=== PATIENT | female | born 1995 | race Caucasian/White ===

== ENCOUNTER 2022-01-28 09:45 | Outpatient (CLI) | payer OTHER, SELFPAY ==
[2022-02-02 15:52] LABS: HPV Reflexed? NOT INDICATED
== END 2022-01-28 23:59 | disposition home or self-care (01) ==
LOC: LABSPEC 09:45
PROVIDERS: Visit Provider Obstetrics & Gynecology
DX: Z34.90 Encounter for supervision of normal pregnancy, unspecified, unspecified trimester (principal)
CPT/HCPCS: 87086; 87088; 88175; G0145

== ENCOUNTER → 2022-02-24 | Outpatient (CLI) | payer OTHER, SELFPAY ==
[2022-02-24 15:25] LABS: Absolute Neutrophil Count 6.4 X10^3/uL (2.0-7.7); Basophil# 0.04 X10^3/uL; Basophil% 0.4 % (0-1); Eosinophil# 0.05 X10^3/uL; Eosinophils% 0.6 % (0-5); Hematocrit 33.1 % (37-47); Hemoglobin 11.3 g/dL (12.0-15.0); Mean Corp Hgb Conc 34.1 g/dL (32-36); Mean Corpuscular Hgb 30.6 pg (27.0-32.0); Mean Corpuscular Volume 89.7 fL (81-99); Mean Platelet Vol. 9.1 fl (6.2-12.0); Monocyte# 0.52 X10^3/uL; Monocyte% 5.7 % (0-10); NRBC Flagged by Analyzer 0 % (0-5); Neutrophil # 6.44 X10^3/uL (2.7-7.7); Platelet Count 187 K/mm3 (150-450); RBC Distribution Width CV 12.8 % (11.6-14.6); RBC Distribution Width SD 42.5 fl (35.1-43.9); Red Blood Count 3.69 M/mm3 (4.2-5.4); White Blood Count 9.1 K/mm3 (4.4-11.0)
[2022-02-25 07:57] LABS: Rubella IgG Reactive (Nonreactive)
[2022-02-26 20:20] LABS: V-Zoster IgG (Immunity) < 135 index (Immune >165)
== END | disposition home or self-care (01) ==
LOC: PAVLAB 15:00
PROVIDERS: Referring Provider Obstetrics & Gynecology; Visit Provider Obstetrics & Gynecology
DX: Z34.90 Encounter for supervision of normal pregnancy, unspecified, unspecified trimester (principal); Z78.9 Other specified health status
CPT/HCPCS: 36415; 85025; 86762; 86787; 86850; 86900; 86901

== ENCOUNTER → 2022-03-24 | Outpatient (CLI) | payer SELFPAY, OTHER ==
--- NOTE | 2022-03-24 14:05 | US_ITS ---
STUDY: SECOND AND THIRD TRIMESTER OBSTETRICAL ULTRASOUND REASON FOR EXAM: Female, 26 years old anatomy LMP: 11/10/2021. TECHNIQUE: Transabdominal and Transvaginal TECHNICAL QUALITY: Adequate. PRIOR ULTRASOUND: None. FINDINGS: There is a single intrauterine fetus. The fetus is in a variable presentation. There is demonstrated cardiac activity with a heart rate of 160 bpm. There is a normal amniotic fluid volume. The largest amniotic fluid pocket measures 4.2 cm. The amniotic fluid index (NICOLE) is within normal limits. The placenta is posterior and low lying but not previa in location. There are Grade 0 placental changes. The cervix measures 3.8 cm in length. The bilateral adnexal regions are normal. BIOMETRY: BPD: 4.01 cm: 18 weeks, 1 days HC: 14.99 cm: 18 weeks, 0 days AC: 14.2 cm: 19 weeks, 3 days FL: 2.81 cm: 18 weeks, 4 days CI: 77% FL/BPD: 70% FL/HC: FL/AC: 20% HC/AC: 1.06 age by current US: 18 weeks, 3 days. JEANA by current US: 08/22/2020. Estimated weight: 269 grams, +/- 40 grams, 38 %. Age by LMP: 19 weeks, 1 days. JEANA by LMP: 08/17/2022. IMPRESSION: Single live intrauterine gestation with a mean gestational age of 18 weeks and 3 days. Posterior and low-lying placenta. Follow-up recommended. Electronically Signed: Anibal Matamoros MD at 11:07 EDT , STUDY: FIRST TRIMESTER OBSTETRICAL ULTRASOUND REASON FOR EXAM: Female, 26 years old cervical length measurements. LMP: 11/10/2021 TECHNIQUE: Transvaginal TECHNICAL QUALITY: Adequate. PRIOR ULTRASOUND: None. FINDINGS: Cervical length measures 3.8 cm. US/OB Anatomy Scan IMPRESSION: Cervical length measures 3.8 cm. Electronically Signed: Anibal Matamoros MD at 11:08 EDT ,
== END | disposition home or self-care (01) ==
PROVIDERS: Referring Provider Obstetrics & Gynecology; Visit Provider Obstetrics & Gynecology
DX: O44.42 Low lying placenta NOS or without hemorrhage, second trimester (principal); Z3A.18 18 weeks gestation of pregnancy
CPT/HCPCS: 76805; 76817

== ENCOUNTER → 2022-05-26 | Outpatient (CLI) | payer OTHER, SELFPAY ==
[2022-05-26 13:13] LABS: Absolute Lymphocyte Count 2.29 X10^3/uL (0.83-4.51); Absolute Neutrophil Count 8.4 X10^3/uL (2.0-7.7); Basophil# 0.05 X10^3/uL; Basophil% 0.4 % (0-1); Eosinophil# 0.07 X10^3/uL; Eosinophils% 0.6 % (0-5); Hematocrit 30.9 % (37-47); Hemoglobin 10.5 g/dL (12.0-15.0); Lymphocyte # 2.29 X10^3/ul (0.83-4.51); Lymphocyte % 19.8 % (19-41); Mean Corpuscular Hgb 31.6 pg (27.0-32.0); Mean Corpuscular Volume 93.1 fL (81-99); Mean Platelet Vol. 8.9 fl (6.2-12.0); Monocyte# 0.73 X10^3/uL; Monocyte% 6.3 % (0-10); NRBC Flagged by Analyzer 0 % (0-5); Neutrophil # 8.35 X10^3/uL (2.7-7.7); Neutrophil % 72.4 % (47-70); Platelet Count 195 K/mm3 (150-450); RBC Distribution Width CV 13.2 % (11.6-14.6); Red Blood Count 3.32 M/mm3 (4.2-5.4); White Blood Count 11.6 K/mm3 (4.4-11.0)
[2022-05-26 13:35] LABS: Glucose Challenge Gest 1H 50g 69 mg/dL (70-140)
--- NOTE | 2022-05-26 13:50 | US_ITS ---
STUDY: SECOND AND THIRD TRIMESTER OBSTETRICAL ULTRASOUND - LIMITED REASON FOR EXAM: Female, 26 years old placenta location LMP: 11/10/2021 PRIOR ULTRASOUND: 03/24/2022 TECHNIQUE: Transabdominal and Transvaginal TECHNICAL QUALITY: Adequate. FINDINGS: There is a single intrauterine fetus. The fetus is in a cephalic presentation. There is demonstrated cardiac activity with a heart rate of 140 bpm. There is a normal amniotic fluid volume. The largest amniotic fluid pocket measures 5.7 cm. The amniotic fluid index (NICOLE) is cm. The placenta is posterior and low lying but not previa in location. There are Grade 0 placental changes. The cervix measures 3.2 cm in length. US/OB Limited (No Biometrics) IMPRESSION: Living intrauterine as described above. Posterior low lying placenta. Electronically Signed: Yovany Theodore MD at 17:56 EDT ,
== END | disposition home or self-care (01) ==
LOC: US 13:49
PROVIDERS: Obstetrics & Gynecology; Referring Provider Obstetrics & Gynecology; Visit Provider Obstetrics & Gynecology
DX: O44.42 Low lying placenta NOS or without hemorrhage, second trimester (principal); Z3A.00 Weeks of gestation of pregnancy not specified; Z13.1 Encounter for screening for diabetes mellitus
CPT/HCPCS: 36415; 76815; 82950; 85025

== ENCOUNTER → 2022-06-24 | Outpatient (CLI) | payer SELFPAY, OTHER ==
--- NOTE | 2022-06-24 09:36 | US_ITS ---
STUDY: SECOND AND THIRD TRIMESTER OBSTETRICAL ULTRASOUND - LIMITED REASON FOR EXAM: Female, 26 years old low lying placenta LMP: 11/10/2021. PRIOR ULTRASOUND: Comparison is made with prior study dated 05/26/2022. TECHNIQUE: Transabdominal and Transvaginal TECHNICAL QUALITY: Adequate. FINDINGS: There is a single intrauterine fetus. The fetus is in a cephalic presentation. There is demonstrated cardiac activity with a heart rate of 144 bpm. There is a normal amniotic fluid volume. The largest amniotic fluid pocket measures 5.7 cm x 5 cm. The amniotic fluid index (NICOLE) is 14.22 cm. The placenta is posterior in location and is not low lying. The tip of the placenta is at 3.7 cm from the cervical os. There are Grade 0 placental changes. The cervix measures 4.7 cm in length. BIOMETRY: Age by LMP: 32 weeks, 2 days. JEANA by LMP: 08/17/2022. age by prior US: 31 weeks, 4 days. JEANA by prior US: 08/22/2022. US/OB Limited (No Biometrics) IMPRESSION: Posterior placenta. The tip of the placenta is at 3.7 cm from the cervical os. Electronically Signed: Anibal Matamoros MD at 13:21 EDT ,
== END | disposition home or self-care (01) ==
PROVIDERS: Referring Provider Obstetrics & Gynecology; Visit Provider Obstetrics & Gynecology
DX: O44.42 Low lying placenta NOS or without hemorrhage, second trimester (principal); Z3A.31 31 weeks gestation of pregnancy
CPT/HCPCS: 76815

== ENCOUNTER → 2022-07-22 | Outpatient (CLI) | payer OTHER, SELFPAY | END | disposition home or self-care (01) | LOC: LABSPEC 15:55 | PROVIDERS: Referring Provider Obstetrics & Gynecology; Visit Provider Obstetrics & Gynecology | DX: Z34.02 Encounter for supervision of normal first pregnancy, second trimester (principal) | CPT/HCPCS: 87081 ==

== ENCOUNTER → 2022-07-23 | Outpatient (CLI) | payer SELFPAY, OTHER ==
--- NOTE | 2022-07-23 10:56 | US_ITS ---
STUDY: SECOND AND THIRD TRIMESTER OBSTETRICAL ULTRASOUND - LIMITED REASON FOR EXAM: Female, 26 years old small for gestational age LMP: 11/10/2021. PRIOR ULTRASOUND: Comparison is made with prior study of 06/24/2022. TECHNIQUE: Transabdominal TECHNICAL QUALITY: Adequate. FINDINGS: There is a single intrauterine fetus. The fetus is in a cephalic presentation. There is demonstrated cardiac activity with a heart rate of 140 bpm. There is a normal amniotic fluid volume. The largest amniotic fluid pocket measures 5 cm. The amniotic fluid index (NICOLE) is 15.6 cm. The placenta is posterior in location and is not low lying. There are Grade 1 placental changes. The cervix was not measured. BIOMETRY: BPD: 8.43 cm: 34 weeks, 0 days HC: 31.26 cm: 35 weeks, 0 days AC: 31.11 cm: 35 weeks, 0 days FL: 6.25 cm: 32 weeks, 2 days Age by LMP: 36 weeks, 3 days. JEANA by LMP: 08/17/2022. age by prior US: 35 weeks, 5 days. JEANA by prior US: 08/22/2022. age by current US: 34 weeks, 1 days. JEANA by current US: 09/02/2022. Estimated weight: 2378 grams, +/- 357 grams, 9% percentile. US/OB Limited With Biometrics IMPRESSION: Single live intrauterine gestation with mean gestational age of 35 weeks and 5 days. The measurements are obtained today following with an the 9th percentile. Electronically Signed: Anibal Matamoros MD at 13:01 EDT ,
== END | disposition home or self-care (01) ==
PROVIDERS: Referring Provider Obstetrics & Gynecology; Visit Provider Obstetrics & Gynecology
DX: O26.849 Uterine size-date discrepancy, unspecified trimester (principal)
CPT/HCPCS: 76816

== ENCOUNTER 2022-08-07 02:05 | Outpatient (CLI) | payer OTHER, SELFPAY ==
[2022-08-07 02:07] VITALS: BMI 25.7
[2022-08-07 02:19] VITALS: BP 106/62
[2022-08-07 02:20] VITALS: PULSE 77; TEMP 36.7; O2SAT 97
[2022-08-07 02:56] LABS: ROM Internal Control Test YES-OK TO RESULT pt. (Internal QC); ROM Patient Test Negative (Negative)
--- NOTE | 2022-08-08 08:46 | OB.TRI.HP_ITS ---
HPI - General HPI Narrative TANIA OLMOS, is a 26 F who presents to L&D for r/o ROM Maternal Data Information JEANA Calculator Estimated Delivery Date Method Current WG Current Estimate 08/17/22 Ultrasound #1 38w 5d Other Estimates 08/25/22 LMP (Certain) 37w 4d PFSH PFSH Home Medications prenat.vits,ric,rey-hiip-dddnn 1 tab PO DAILY 01/21/22 [History Last Taken 08/06/22 11:00] calcium citrate 315 mg calcium-vitamin D3 6.25 mcg (250 unit) tablet (Citracal + Vitamin D Maximum) 1 tab PO DAILY 01/27/22 [History Last Taken Unknown] folic acid 400 mcg tablet 0.4 mg PO DAILY 01/27/22 [History Last Taken Unknown] lactobacillus combination no.9 4 billion cell capsule (Adult 50 Plus Probiotic) PO 01/27/22 [History Last Taken Unknown] Allergy/AdvReac Type Severity Reaction Status Date / Time No Known Allergies Allergy Verified 08/07/22 02:08 Social History adopted: No household members: spouse current occupational status: unemployed pets and animals: Yes pets and animals: dog(s) Smoking Status: Never smoker alcohol intake: never substance use type: does not use caffeine: No seatbelt use: always do you feel safe at home: Yes additional social history: [employer] Patient does not work History 1 Elective abortions Hx Para 0 Spontaneous abortions Hx # Term Pregnancies Ectopic pregnancies Hx # Pregnancies Multiple births # of living children Visit Details Expected Delivery Route/Plan Labor Preferences- CB/BF classes: no labor support person: Curtis labor intervention preferences: limited intervention pain management options preferred: cut cord/dad catch: cord : yes PP control planned: discussed. discussed possible routes of delivery and associated risks: [] special requests: tub room Plans Covid status: discussed Flu vaccine: discussed Tdap vaccine: [] Rhogam: na LARC form signed: yes Problem list reviewed and updated with the most current plan of care details and appropriate orders placed. Relevant counseling for the gestational age provided. Continue routine care and follow up unless otherwise noted in visit notes/problem list details OB Flowsheet Initial Weight: Not Recorded Date -?-?-?-?-?-?-?-?-?-?-?-?- EGA Weight BP Urine Prot -?-?-?-?-?-?-?-?-?-?-?-?- Glucose FHR FuHt Pres Dilation -?-?-?-?-?-?-?-?-?-?-?-?- Effaced St Visit Note 01/27/22 -?-?-?-?-?-?-?-?-?-?-?-?- 11w 1d 110/62 -?-?-?-?-?-?-?-?-?-?-?-?- 160 -?-?-?-?-?-?-?-?-?-?-?-?- JV- crl not cons istent with LMP. new jeana 08/17/22 02/24/22 -?-?-?-?-?-?-?-?-?-?-?-?- 15w 1d 131 lb 110/70 Negative -?-?-?--?-?-?-?-?-?-?-?-?- Negative 165 -?-?-?-?-?-?-?-?-?-?-?-?- JV- no complaint s today. needs blood work. 03/24/22 -?-?-?-?-?-?-?-?-?-?-?-?- 19w 1d 132 lb 8 oz 114/70 Nega tive -?-?-?-?-?-?-?-?-?-?-?-?- Negative 156 -?-?-?-?-?-?-?-?-?-?-?-?- MH-No VB. Feelin g movement. Anatomy US today 04/28/22 -?-?-?-?-?-?-?-?-?-?-?-?- 24w 1d 138 lb 112/82 Negative -?-?-?-?-?-?-?-?-?-?-?-?- Negative 150 -?-?-?-?-?-?-?-?-?-?-?-?- SM- no vb crampi ng 05/26/22 -?-?-?-?-?-?-?-?-?-?-?-?- 28w 1d 142 lb 104/60 Negative -?-?-?-?-?-?-?-?-?-?-?-?- Negative 151 27 -?-?-?-?-?-?--?-?-?-?-?-?- -No VB, LOF. G ood FM. 28 wk labs, [facility] 06/11/22 -?-?-?-?-?-?-?-?-?-?-?-?- 30w 3d 143 lb 2 oz 90/60 Nega tive -?-?-?-?-?-?-?-?-?-?-?-?- Negative 140 -?-?-?-?-?-?-?-?-?-?-?-?- JV- no lof, v ag inal bleeding, or dec fm. no complaints today 06/24/22 -?-?-?-?-?-?-?-?-?-?-?-?- 32w 2d 144 lb 108/70 Negative -?-?-?-?-?-?-?-?-?-?-?-?- Negative 136 31 -?-?-?-?-?-?-?-?-?-?-?-?- -No VB, LOF. G ood FM. US today to check placental location. 07/10/22 -?-?-?-?-?-?-?-?-?-?-?-?- 34w 4d 146 lb 8 oz 120/75 Nega tive -?-?-?-?-?-?-?-?-?-?-?-?- Negative 134 32 -?-?-?-?-?-?-?-?-?-?--?-?- JV- no lof, vagi nal bleeding, or dec fm. iron 07/22/22 -?-?-?-?-?-?-?-?-?-?-?-?- 36w 2d 148 lb 2 oz 100/68 Nega tive -?-?-?-?-?-?-?-?-?-?-?-?- Negative 140 33 Cephalic 0 -?-?-?-?-?-?-?-?-?-?-?-?- SM- no vb lof go od fm no reuglar ctx SM- no vb lof good fm no reu glar ctx FH low check growth US, GBs DONE. 07/25/22 -?-?-?-?-?-?-?-?-?-?-?-?- 36w 5d 146 lb 2 oz Negative -?-?-?-?-?-?-?-?-?-?-?-?- Negative -?-?-?-?-?-?-?-?-?-?-?-?- NST due to IUGR on US, getting in with MFM next week. reviewed kick counts 07/28/22 -?-?-?-?-?-?-?-?-?-?-?-?- 37w 1d 147 lb 6 oz 108/67 -?-?-?-?-?-?-?-?-?-?-?-?- -?-?-?-?-?-?-?-?-?-?-?-?- LC-reactive NST. obtaining u/s with MFM this week. c/w BID NST 07/31/22 -?-?-?-?-?-?-?-?-?-?-?-?- 37w 4d 148 lb 6 oz 100/76 Nega tive -?-?-?-?-?-?-?-?-?-?-?-?- Negative 140 33 -?-?-?-?-?-?-?-?-?-?-?-?- MH-Reactive NST. No VB, LOF. Doing kick counts. MFM appt with US tomorrow 08/06/22 -?-?-?-?-?-?-?-?-?-?-?-?- 38w 3d 147 lb 6 oz 104/70 Nega tive -?-?-?-?-?-?-?-?-?-?-?-?- Negative 150 36.5 Cephalic 0 .5 -?-?-?-?-?-?-?-?-?-?-?-?- 20 -3 LC- no vb, lof,ctx.good FM. per pt MFM reports good growth (17%). will d/c NST. 08/07/22 -?-?-?-?-?-?-?-?-?-?-?-?- 38w 4d 145 lb 6.4 oz 106/62 -?-?-?-?-?-?-?-?-?-?-?-?- -?-?-?-?-?-?-?-?-?-?-?-?- ROS ROS Narrative pt called with sudden gush of fluid felt in bathtub with continued leaking. +FM, no consistent ctx, no vb. NST FHR Rate Baby A Baseline: 125-130 Variability:: Moderate Accelerations:: 15 x 15 Decelerations:: None NST Reactive:: Yes FHR Category:: Category I FHR Rate Baby B Uterine Activity:: irregular Charges/Coding Multi Select Codes Urinary/Genital Urinary/Genital CPT Codes: 73560-41 non-stress test Interp
--- NOTE | 2022-08-08 08:46 | OB.TRI.NOTE ---
HPI - General HPI Narrative TANIA OLMOS, is a 26 F who presents to L&D for r/o ROM Maternal Data Information JEANA Calculator Estimated Delivery Date Method Current WG Current Estimate 08/17/22 Ultrasound #1 38w 5d Other Estimates 08/25/22 LMP (Certain) 37w 4d PFSH PFSH Home Medications prenat.vits,ric,jqz-qalp-esegc 1 tab PO DAILY 01/21/22 [History Last Taken 08/06/22 11:00] calcium citrate 315 mg calcium-vitamin D3 6.25 mcg (250 unit) tablet (Citracal + Vitamin D Maximum) 1 tab PO DAILY 01/27/22 [History Last Taken Unknown] folic acid 400 mcg tablet 0.4 mg PO DAILY 01/27/22 [History Last Taken Unknown] lactobacillus combination no.9 4 billion cell capsule (Adult 50 Plus Probiotic) PO 01/27/22 [History Last Taken Unknown] Allergy/AdvReac Type Severity Reaction Status Date / Time No Known Allergies Allergy Verified 08/07/22 02:08 Social History adopted: No household members: spouse current occupational status: unemployed pets and animals: Yes pets and animals: dog(s) Smoking Status: Never smoker alcohol intake: never substance use type: does not use caffeine: No seatbelt use: always do you feel safe at home: Yes additional social history: [employer] Patient does not work History 1 Elective abortions Hx Para 0 Spontaneous abortions Hx # Term Pregnancies Ectopic pregnancies Hx # Pregnancies Multiple births # of living children Visit Details Expected Delivery Route/Plan Labor Preferences- CB/BF classes: no labor support person: Curtis labor intervention preferences: limited intervention pain management options preferred: cut cord/dad catch: cord : yes PP control planned: discussed. discussed possible routes of delivery and associated risks: [] special requests: tub room Plans Covid status: discussed Flu vaccine: discussed Tdap vaccine: [] Rhogam: na LARC form signed: yes Problem list reviewed and updated with the most current plan of care details and appropriate orders placed. Relevant counseling for the gestational age provided. Continue routine care and follow up unless otherwise noted in visit notes/problem list details OB Flowsheet Initial Weight: Not Recorded Date <del>?</del> EGA Weight BP Urine Prot <del>?</del> Glucose FHR FuHt Pres Dilation <del>?</del> Effaced St Visit Note 01/27/22 <del>?</del> 11w 1d 110/62 <del>?</del> 160 <del>?</del> JV- crl not consistent with LMP. new jeana 08/17/22 02/24/22 <del>?</del> 15w 1d 131 lb 110/70 Negative <del>?</del> Negative 165 <del>?</del> JV- no complaints today. needs blood work. 03/24/22 <del>?</del> 19w 1d 132 lb 8 oz 114/70 Negative <del>?</del> Negative 156 <del>?</del> MH-No VB. Feeling movement. Anatomy US today 04/28/22 <del>?</del> 24w 1d 138 lb 112/82 Negative <del>?</del> Negative 150 <del>?</del> SM- no vb cramping 05/26/22 <del>?</del> 28w 1d 142 lb 104/60 Negative <del>?</del> Negative 151 27 <del>?</del> MH-No VB, LOF. Good FM. 28 wk labs, [facility] 06/11/22 <del>?</del> 30w 3d 143 lb 2 oz 90/60 Negative <del>?</del> Negative 140 <del>?</del> JV- no lof, v aginal bleeding, or dec fm. no complaints today 06/24/22 <del>?</del> 32w 2d 144 lb 108/70 Negative <del>?</del> Negative 136 31 <del>?</del> MH-No VB, LOF. Good FM. US today to check placental location. 07/10/22 <del>?</del> 34w 4d 146 lb 8 oz 120/75 Negative <del>?</del> Negative 134 32 <del>?</del> JV- no lof, vaginal bleeding, or dec fm. iron 07/22/22 <del>?</del> 36w 2d 148 lb 2 oz 100/68 Negative <del>?</del> Negative 140 33 Cephalic 0 <del>?</del> SM- no vb lof good fm no reuglar ctx SM- no vb lof good fm no reuglar ctx FH low check growth US, GBs DONE. 07/25/22 <del>?</del> 36w 5d 146 lb 2 oz Negative <del>?</del> Negative <del>?</del> NST due to IUGR on US, getting in with MFM next week. reviewed kick counts 07/28/22 <del>?</del> 37w 1d 147 lb 6 oz 108/67 <del>?</del> <del>?</del> LC-reactive NST. obtaining u/s with MFM this week. c/w BID NST 07/31/22 <del>?</del> 37w 4d 148 lb 6 oz 100/76 Negative <del>?</del> Negative 140 33 <del>?</del> MH-Reactive NST. No VB, LOF. Doing kick counts. MFM appt with US tomorrow 08/06/22 <del>?</del> 38w 3d 147 lb 6 oz 104/70 Negative <del>?</del> Negative 150 36.5 Cephalic 0.5 <del>?</del> 20 -3 LC- no vb,lof,ctx.good FM. per pt MFM reports good growth (17%). will d/c NST. 08/07/22 <del>?</del> 38w 4d 145 lb 6.4 oz 106/62 <del>?</del> <del>?</del> ROS ROS Narrative pt called with sudden gush of fluid felt in bathtub with continued leaking. +FM, no consistent ctx, no vb. NST FHR Rate Baby A Baseline: 125-130 Variability:: Moderate Accelerations:: 15 x 15 Decelerations:: None NST Reactive:: Yes FHR Category:: Category I FHR Rate Baby B Uterine Activity:: irregular Charges/Coding Multi Select Codes Urinary/Genital Urinary/Genital CPT Codes: 39531-00 non-stress test Interp
== END 2022-08-07 03:13 | disposition home or self-care (01) ==
LOC: WPOUT 02:06 → WP 02:07
PROVIDERS: Visit Provider Registered Nurse
DX: O42.92 Full-term premature rupture of membranes, unspecified as to length of time between rupture and onset of labor (principal); Z3A.38 38 weeks gestation of pregnancy
CPT/HCPCS: 59025; 59050; 84112; 99218; G0378

== ENCOUNTER 2022-08-18 23:00 | Inpatient (IN) | payer SELFPAY, OTHER ==
[2022-08-18 19:28] VITALS: BP 103/67; PULSE 77; TEMP 36.2
[2022-08-18 19:33] VITALS: BMI 25.4
[2022-08-18 22:22] VITALS: BP 113/76; PULSE 74; PULSE 78; TEMP 36.7; O2SAT 96
--- NOTE | 2022-08-18 23:11 | HP.PCM.OB_ITS ---
HPI - General HPI Narrative TANIA OLMOS, is a 26 F who presents aS A at 40+1 with steady contractions since 1630. active fetus, denies lof/vb. triaged with cervical change from 2.5 to 4cm. course is significant for limited labs. varicella non- immune. glucose 69. gbs negative Maternal Data Information JEANA Calculator Estimated Delivery Date Method Current WG Current Estimate 08/17/22 Ultrasound #1 40w 1d Other Estimates 08/25/22 LMP (Certain) 39w 0d Final JEANA: 08/17/22 Final JEANA Source: US <20 weeks PFSH PFSH Medical History no medical history Home Medications prenat.vits,ric,[id number] 1 tab PO DAILY 01/21/22 [History Last Taken 08/06/22 11:00] calcium citrate 315 mg calcium-vitamin D3 6.25 mcg (250 unit) tablet (Citracal + Vitamin D Maximum) 1 tab PO DAILY supplement 01/27/22 [History Last Taken Unknown] folic acid 400 mcg tablet 0.4 mg PO DAILY 01/27/22 [History Last Taken Unknown] lactobacillus combination no.9 4 billion cell capsule (Adult 50 Plus Probiotic) 1 cell PO DAILY gut health 01/27/22 [History Last Taken Unknown] Allergy/AdvReac Type Severity Reaction Status Date / Time No Known Allergies Allergy Verified 08/12/22 15:52 Family History no significant family his Surgical History no surgical history Social History adopted: No household members: spouse current occupational status: unemployed pets and animals: Yes pets and animals: dog(s) Smoking Status: Never smoker alcohol intake: never substance use type: does not use caffeine: No seatbelt use: always do you feel safe at home: Yes additional social history: [employer] Patient does not work History 1 Elective abortions Hx Para 0 Spontaneous abortions Hx # Term Pregnancies Ectopic pregnancies Hx # Pregnancies Multiple births # of living children Visit Details Expected Delivery Route/Plan Labor Preferences- CB/BF classes: no labor support person: Curtis labor intervention preferences: limited intervention pain management options preferred: cut cord/dad catch: cord : yes PP control planned: discussed. discussed possible routes of delivery and associated risks: [] special requests: tub room Plans Covid status: discussed Flu vaccine: discussed Tdap vaccine: [] Rhogam: na LARC form signed: yes Problem list reviewed and updated with the most current plan of care details and appropriate orders placed. Relevant counseling for the gestational age provided. Continue routine care and follow up unless otherwise noted in visit notes/problem list details OB Flowsheet Initial Weight: Not Recorded Date -?-?-?-?-?-?-?-?-?-?-?-?- EGA Weight BP Urine Prot -?-?-?-?-?-?-?-?-?-?-?-?- Glucose FHR FuHt Pres Dilation -?-?-?-?-?-?-?-?-?-?-?-?- Effaced St Visit Note 01/27/22 -?-?-?-?-?-?-?-?-?-?-?-?- 11w 1d 110/62 -?-?-?-?-?-?-?-?-?-?-?-?- 160 -?-?-?-?-?-?-?-?-?-?-?-?- JV- crl not cons istent with LMP. new jeana 08/17/22 02/24/22 -?-?-?-?-?-?-?-?-?-?-?-?- 15w 1d 131 lb 110/70 Negative -?-?-?-?-?-?-?-?-?-?-?-?- Negative 165 -?-?-?-?-?-?-?-?-?-?-?-?- JV- no complaint s today. needs blood work. 03/24/22 -?-?-?-?-?-?-?-?-?-?-?-?- 19w 1d 132 lb 8 oz 114/70 Nega tive -?-?-?-?-?-?-?-?-?-?-?-?- Negative 156 -?-?-?-?-?-?-?-?-?-?-?-?- MH-No VB. Gagandeep monsalve movement. Anatomy US today 04/28/22 -?-?-?-?-?-?-?-?-?-?-?-?- 24w 1d 138 lb 112/82 Negative -?--?-?-?-?-?-?-?-?-?-?-?- Negative 150 -?-?-?-?-?-?-?-?-?-?-?-?- SM- [facility] -?-?-?-?-?-?-?-?-?-?-?-?- 28w 1d 142 lb 104/60 Negative -?-?-?-?-?-?-?-?-?-?-?-?- Negative 151 27 -?-?-?-?-?-?-?-?-?-?-?-?- MH-No VB, LOF. G ood FM. 28 wk labs, [facility] 06/11/22 -?-?-?-?-?-?--?-?-?-?-?-?- 30w 3d 143 lb 2 oz 90/60 Nega tive -?-?-?-?-?-?-?-?-?-?-?-?- Negative 140 -?-?-?-?-?-?-?-?-?-?-?-?- JV- no lof, v ag inal bleeding, or dec fm. no complaints today 06/24/22 -?-?-?-?-?-?-?-?-?-?-?-?- 32w 2d 144 lb 108/70 Negative -?-?-?-?-?-?-?-?-?-?-?-?- Negative 136 31 -?-?-?-?-?-?-?-?-?-?-?-?- MH-No VB, LOF. G ood FM. US today to check placental location. 07/10/22 -?-?-?-?-?-?-?-?-?-?-?-?- 34w 4d 146 lb 8 oz 120/75 Nega tive -?-?-?-?-?-?-?-?-?-?-?-?- Negative 134 32 -?-?-?-?-?-?-?-?-?-?-?-?- JV- no lof, vagi nal bleeding, or dec fm. iron 07/22/22 -?-?-?-?--?-?-?-?-?-?-?-?- 36w 2d 148 lb 2 oz 100/68 Nega tive -?-?-?-?-?-?-?-?-?-?-?-?- Negative 140 33 Cephalic 0 -?-?-?-?-?-?-?-?-?-?-?-?- SM- no vb lof go od fm no reuglar ctx SM- no vb lof good fm no reu glar ctx FH low check growth US, GBs DONE. 07/25/22 -?-?-?-?-?-?-?-?-?-?-?-?- 36w 5d 146 lb 2 oz Negative -?-?-?-?-?-?-?-?-?-?-?-?- Negative -?-?-?-?-?-?-?-?-?-?-?-?- NST due to IUGR on US, getting in with MFM next week. reviewed kick counts 07/28/22 -?-?-?-?-?-?-?-?-?-?-?-?- 37w 1d 147 lb 6 oz 108/67 -?-?-?-?-?-?-?-?-?-?-?-?- -?-?-?-?-?-?-?-?-?-?-?-?- LC-reactive NST. obtaining u/s with MFM this week. c/w BID NST 07/31/22 -?-?-?-?-?-?-?-?-?-?-?-?- 37w 4d 148 lb 6 oz 100/76 Nega tive -?-?-?-?-?-?-?-?-?-?-?-?- Negative 140 33 -?-?-?-?-?-?-?-?-?-?-?-?- MH-Reactive NST. No VB, LOF. Doing kick counts. MFM appt with US tomorrow 08/06/22 -?-?-?-?-?-?-?-?-?-?-?-?- 38w 3d 147 lb 6 oz 104/70 Nega tive -?-?-?-?-?-?-?-?-?-?-?-?- Negative 150 36.5 Cephalic 0 .5 -?-?-?-?-?-?-?-?-?-?-?-?- 20 -3 LC- no vb, lof,ctx.good FM. per pt MFM reports good growth (17%). will d/c NST. 08/12/22 -?-?-?-?-?-?-?-?-?-?-?-?- 39w 2d 147 lb 101/70 Negative -?-?-?-?-?-?-?-?-?-?-?-?- Negative 130 37 Cephalic 1 -?-?-?-?-?-?-?-?-?-?-?-?- 50 -3 JV- no lof (since thursday last week when was found to have neg rom +), dec fm or vaginal bleeding. NICOLE today is 15. 08/18/22 -?-?-?-?-?-?-?-?-?-?-?-?- 40w 1d 113/76 -?-?-?-?-?-?-?-?-?-?-?-?- -?-?-?-?-?-?-?-?-?-?-?-?- NST FHR Rate Baby A Baseline: 140 Variability:: Moderate Accelerations:: 15 x 15 Decelerations:: None NST Reactive:: Yes FHR Category:: Category I ROS Cardiovascular Cardiovascular: Denies abdominal pain, chest pain, diaphoresis, dyspnea, edema or fatigue Respiratory/Chest Respiratory/Chest: Denies change in mental status, chest congestion, chest tightness, cough, shortness of breath at rest, shortness of breath with exertion, breast mass, breast pain, breast skin changes, breast swelling, change in breast shape or nipple discharge Gastrointestinal Gastrointestinal: Denies diarrhea, hemorrhoids, nausea, vomiting or weight changes Genitourinary Genitourinary: Denies abdominal discomfort, burning urination, change in libido, change in urinary stream, contractions, difficulty urinating, dysuria, movement, low back pain, urinary frequency, urinary hesitancy, urinary incontinence or urinary urgency Musculoskeletal Musculoskeletal: Reports none Integumentary Integumentary: Reports none Neurologic Neurologic: Reports none Psychiatric Psychiatric: Reports none Endocrine Endocrinology: Reports none Hematologic/Lymphatic Hematologic/Lymphatic: Reports none Allergic/Immunologic Allergic/Immunologic: Reports none Vital Signs Vital Signs Vital Signs: 08/18/22 19:28 08/18/22 19:28 08/18/22 19:28 Temperature Temperature Source Temporal Pulse Rate 77 Blood Pressure 103/67 BP Systolic 103 BP Diastolic 67 Pulse Ox 08/18/22 19:28 08/18/22 19:28 08/18/22 19:28 Temperature 97.2 F L Temperature Source Temporal Pulse Rate 77 Blood Pressure BP Systolic BP Diastolic Pulse Ox 08/18/22 19:28 08/18/22 19:28 08/18/22 22:22 Temperature 97.2 F L Temperature Source Pulse Rate 77 Blood Pressure 113/76 BP Systolic 113 BP Diastolic 76 Pulse Ox 08/18/22 22:22 08/18/22 22:22 08/18/22 22:22 Temperature Temperature Source Temporal Pulse Rate 78 74 Blood Pressure BP Systolic BP Diastolic Pulse Ox 08/18/22 22:22 08/18/22 22:22 Temperature 98.0 F Temperature Source Pulse Rate Blood Pressure BP Systolic BP Diastolic Pulse Ox 96 Weight Weight: 143 lb 9.6 oz Body Mass Index (BMI) 25.4 Physical Exam Const alert, oriented x3 and no apparent distress General Appearance: cooperative, comfortable and well kempt; Negative for in distress Orientation / Consciousness: awake and oriented to person Exam Limitations: no limitations HEENT normocephalic Mouth: oral and palatal mucosa normal Neck full ROM and thyroid normal Chest inspection of chest normal Resp normal respiratory effort Effort and Inspection: able to speak in complete sentences and symmetric chest movement Cardio regular rate Peripheral Pulses: pulses 2+ throughout GI normal to inspection, nondistended, normoactive bowel sounds Inspection: gravid no CVA tenderness and appearance of the vagina normal External Female Exam: normal appearance of the urethra; Negative for external lesion OB / External & Speculum: external exam normal Manual OB Exam: estimated gestational size appropriate and presentation cephalic Uterus Palpation: Negative for uterus tender Extremity normal to inspection Skin no rashes or lesions noted Neuro deep tendon reflexes 2+ bilaterally and gait normal Motor Exam: strength 5/5 throughout and clonus absent Psych Activity / Motor Behavior: appropriate eye contact Speech: normal speech Labs Labs Labs: Blood Type A POSITIVE Antibody Screen NEGATIVE Hct 30.9 % (37-47) L Hgb 10.5 g/dL (12.0-15.0) L Obstetrics US VZV IgG Antibody < 135 index (Immune >165) L Rubella IgG Antibody Reactive (Nonreactive) Glucose 1 Hr 50 gm 69 mg/dL (70-140) L Assessment & Plan (1) Maternal varicella, non-immune: COMMENT: Vaccine after delivery (2) Anemia in preg-unspec: COMMENT: add FE (3) : QUALIFIERS: Weeks of gestation: 39 weeks Qualified Code(s): Z3A.39 - 39 weeks gestation of COMMENT: GBS neg. declined ntd genetic and carrier screen. nl anatomy (4) Supervision of normal first : QUALIFIERS: Trimester: second trimester Qualified Code(s): Z34.02 - Encounter for supervision of normal first , second trimester COMMENT: [id number] JEANA 08/25/22 surprise Spouse:Curtis (5) Active labor at term: PLAN: Patient presents IAL, will continue with expectant management Pain management:unmedicated, hydrotherapy GBS negative Management of any complications: [none] I have reviewed the [facility] and made any clinically relevant updates.
[2022-08-18 23:52] VITALS: BP 112/71; TEMP 36.6
[2022-08-18 23:53] VITALS: PULSE 86; O2SAT 98
[2022-08-18 23:54] LABS: Absolute Lymphocyte Count 1.83 X10^3/uL (0.83-4.51); Basophil# 0.02 X10^3/uL; Basophil% 0.2 % (0-1); Eosinophil# 0.03 X10^3/uL; Eosinophils% 0.2 % (0-5); Hematocrit 36.4 % (37-47); Hemoglobin 12.7 g/dL (12.0-15.0); Lymphocyte # 1.83 X10^3/ul (0.83-4.51); Lymphocyte % 14.7 % (19-41); Mean Corp Hgb Conc 34.9 g/dL (32-36); Mean Corpuscular Hgb 32.5 pg (27.0-32.0); Mean Corpuscular Volume 93.1 fL (81-99); Mean Platelet Vol. 9.9 fl (6.2-12.0); Monocyte# 0.56 X10^3/uL; Monocyte% 4.5 % (0-10); NRBC Flagged by Analyzer 0 % (0-5); Neutrophil # 9.97 X10^3/uL (2.7-7.7); Platelet Count 184 K/mm3 (150-450); RBC Distribution Width SD 43.9 fl (35.1-43.9); Red Blood Count 3.91 M/mm3 (4.2-5.4); White Blood Count 12.5 K/mm3 (4.4-11.0)
[2022-08-18] MEDS: 0.9% Saline Lock 10 ML Syringe IV (23:57)
[2022-08-18 23:58] LABS: Amphetamine Urine VISTA NEGATIVE (<1000 ng/mL); Barbiturate Urine VISTA NEGATIVE (< 200 ng/mL); Benzodiazepine Urine VISTA NEGATIVE (< 200 ng/mL); Cocaine Urine VISTA NEGATIVE (< 300 ng/mL); Ecstacy Urine VISTA NEGATIVE (< 500 ng/mL); Methadone Urine VISTA NEGATIVE (< 300 ng/mL); PCP Urine VISTA NEGATIVE (< 25 ng/mL); THC Urine VISTA NEGATIVE (< 50 ng/mL); Vista UDS pH Range 7
[2022-08-19] VITALS (48 sets, daily range): BP systolic 95–138; BP diastolic 55–68; PULSE 75–103; RESP 16; TEMP 36.3–36.8; O2SAT 81–100
[2022-08-19 01:55] LABS: HIV - WCH Non-Reactive (Nonreactive); Hepatitis B Surface Antigen Non-Reactive (Nonreactive); Hepatitis C Antibody Non-Reactive (Nonreactive)
[2022-08-19 02:30] LABS: Chlamydia Trachomatis by PCR Negative (Negative); Neisserai gonorrhoeae by PCR Negative (Negative); Probe Check PASS; Sample Adequacy Control PASS; Specimen Processing Control PASS
[2022-08-19] MEDS: Oxytocin 10 UNITS/ML Vial IM (02:58)
[2022-08-19] MEDS: Methylergonovine 0.2 MG/ML Ampul IM (03:01)
[2022-08-19] MEDS: LACTATED RINGERS 500 ML 999 ML IV (03:03)
--- NOTE | 2022-08-19 03:17 | OP.PCM_ITS ---
Assessment & Plan (1) (spontaneous vaginal delivery): COMMENT: 08/19/2022 girl-Nithya at 40+2. LC PLAN: -routine pp care - support (2) Maternal varicella, non-immune: COMMENT: Vaccine after delivery (3) PPH ( hemorrhage): COMMENT: 500 EBL responded to methergine, IM pit, manual expression of clot PLAN: CBC in AM Ancef 2 g IVx1 Maternal Data Information JEANA Calculator Estimated Delivery Date Method Current WG Current Estimate 08/17/22 Ultrasound #1 40w 2d Other Estimates 08/25/22 LMP (Certain) 39w 1d Vaginal Delivery Maternal Presentation Maternal Presentation: Active Labor Operative Information Date of Procedure: 08/19/22 Pre-Operative Diagnosis: labor Post-Operative Diagnosis: Surgery / Procedure Performed: Spontaneous Vaginal Delivery Type of Anesthesia: None Estimated Blood Loss: 500 Time of Delivery: 02:45 Findings Description of Procedure: Patient began pushing and delivered the head in the [JOYCE] presentation. The head was delivered atraumatically. The anterior and posterior shoulders delivered without complication followed by the rest of the and the was placed on the maternal abdomen. Delayed cord clamping was employed for approximately 5 minutes. Cord was clamped and cut and gentle traction was applied to the cord and the placenta delivered spontaneously immediately following it was noted to be intact with three-vessel cord. The perineum and vagina were inspected and right periurethral tear was noted. non bleeding, superficial, repair not required. pt noted to have boggy uterus. fundal massage performed, IM Pitocin given 0258 for brisk bleeding noted, fundus continued to be boggy, PP hemorrhage called for resources. manually expressed large clots. IM Methergine given 0301. excellent hemostasis achieved. EBL was [500 cc]. Patient and infant tolerated delivery well entered recovery phase in stable condition bonding skin to skin. Presentation: Vertex Amniotic Membrane Rupture Type: Artificial (forebag ruptured) Time of Membrane Rupture: 0235 Amniotic Fluid Description: Clear Placental Delivery Description: Spontaneous Placenta Disposition: [facility] Cord Vessel Description: 3 Vessels Cord Entanglement: None A Gender: Female (1 minute): 8 (5 minute): 9 Delayed Cord Clamping: Yes Post Vaginal Delivery Medications Given After Delivery: IM Methergin and - (IM pitcon) Episiotomy Description: None Laceration: Periurethral Extnsion/lac Complication Complications: - (stage 1 pp hemorrhage) Multi Select Codes Urinary/Genital Urinary/Genital CPT Codes: 29619 Vaginal Delivery global 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
[2022-08-19] MEDS: Cefazolin 2 GM in 0.9% Normal Saline 100 ML IV (04:05)
[2022-08-19 08:33] LABS: Rubella IgG Reactive (Nonreactive); Syphilis Antibodies Non-reactive
--- NOTE | 2022-08-19 10:03 | DCINST_ITS ---
Discharge Instructions Diet Discharge Diet: No restrictions Activity Discharge Activity: May Not Drive and May Shower May resume sexual activity in: 6 weeks Weight Bearing Status: Full weight bearing Dressing / Incision Call your doctor if your incision/area has: Sudden Increased Bleeding, Increased Pain/ Swelling and Foul Smelling Discharge Call your doctor if you observe: Fever of 101 or Higher, Coldness, Increased Pain, Numbness or Tingling, Change in Color, Inability to urinate, Inability to have a bowel movement, Using more than 1 pad per hour, Shortness of breath, Dizziness, Fainting spells, Chest pain, Calf discomfort and Uncontrolled pain Follow Up Care When: 6 weeks in office for visit Test Results: Test results from this visit will be discussed in further detail at your follow- up appointment, if applicable. Discharge Plan Admission Admit Date/Time: 08/18/22 23:00 Attending Provider: Cara Meneses Primary Care Provider: Donita Physician,Nora Primary Discharge Orders/Prescriptions Prescriptions: No Action prenat.vits,ric,[id number]-wmxzp Tablet 1 tab PO DAILY calcium citrate-vitamin D3 [Citracal + D Maximum] 315 mg-6.25 mcg (250 unit) tablet 1 tab PO DAILY Adult 50 Plus Probiotic 4 billion cell capsule 1 cell PO DAILY folic acid 400 mcg tablet 0.4 mg PO DAILY Referrals / Follow Up: Care Physician,No Primary [Primary Care Provider] -
[2022-08-20] VITALS (7 sets, daily range): BP systolic 95–102; BP diastolic 51–58; PULSE 78–99; RESP 15–16; TEMP 36.3–36.4; O2SAT 96–98
[2022-08-20 05:49] LABS: Hematocrit 25.5 % (37-47); Mean Corp Hgb Conc 35.3 g/dL (32-36); Mean Corpuscular Hgb 32.5 pg (27.0-32.0); Mean Corpuscular Volume 92.1 fL (81-99); Platelet Count 165 K/mm3 (150-450); RBC Distribution Width SD 43.1 fl (35.1-43.9); Red Blood Count 2.77 M/mm3 (4.2-5.4); White Blood Count 10.6 K/mm3 (4.4-11.0)
--- NOTE | 2022-08-20 08:18 | PCM.PN.OB ---
Subjective Subjective Patient doing well without complaints. Tolerating PO. Ambulating and voiding without difficulty. Feeding well. Denies chest pain, shortness of breath, calf pain/swelling, fevers, chills, lightheadedness. Objective Data Objective Data Vital Signs: Vital Signs Temp Pulse Resp BP Pulse Ox O2 Del Method 97.5 F L 78 16 95/51 L 97 Room Air 08/20/22 03:30 08/20/22 03:30 08/20/22 03:30 08/20/22 03:30 08/20/22 00:20 08/20/22 00:20 Oxygen Delivery Method Room Air Weight: 143 lb 9.6 oz Body Mass Index (BMI) 25.4 Intake & Output: Intake and Output for Last 24 Hours 08/18/22 08/19/22 08/20/22 23:59 23:59 23:59 Intake Total 376.4 / 376.4 Output Total 400 / 400 Balance -23.6 / -23.6 Lab / Micro Data Attestation: I reviewed the patient's lab results. Result Diagrams: 08/20/22 05:41 Labs: Laboratory Results - last 24 hr 08/18/22 23:30: Syphilis Total Ab Non-reactive, Rubella IgG Antibody Reactive 08/20/22 05:41: WBC 10.6, RBC 2.77 L, Hgb 9.0 L, Hct 25.5 L, MCV 92.1, MCH 32.5 H, MCHC 35.3, RDW Std Deviation 43.1, RDW Coeff of Suzie 13.0, Plt Count 165, MPV 10.0 Micro: Microbiology 08/18/22 23:30 Nasal Secretion SARS-CoV-2 Antigen (Rapid) - Final ROS Cardiovascular Cardiovascular: Denies abdominal pain, chest pain, diaphoresis, dyspnea, edema or fatigue Respiratory/Chest Respiratory/Chest: Denies change in mental status, chest congestion, chest tightness, cough, shortness of breath at rest, shortness of breath with exertion, breast mass, breast pain, breast skin changes, breast swelling, change in breast shape or nipple discharge Gastrointestinal Gastrointestinal: Denies diarrhea, hemorrhoids, nausea, vomiting or weight changes Genitourinary Genitourinary: Denies abdominal discomfort, burning urination, change in libido, change in urinary stream, contractions, difficulty urinating, dysuria, movement, low back pain, urinary frequency, urinary hesitancy, urinary incontinence or urinary urgency Musculoskeletal Musculoskeletal: Reports none Integumentary Integumentary: Reports none Neurologic Neurologic: Reports none Psychiatric Psychiatric: Reports none Endocrine Endocrinology: Reports none Hematologic/Lymphatic Hematologic/Lymphatic: Reports none Allergic/Immunologic Allergic/Immunologic: Reports none Physical Exam Const alert, oriented x3 and no apparent distress HEENT normocephalic Eyes PERRL Resp normal respiratory effort Effort and Inspection: symmetric chest movement GI soft to palpation GI Narrative: fundus firm 3below U Extremity normal to inspection and full ROM Assessment & Plan (1) PPH ( hemorrhage): COMMENT: 500 EBL responded to methergine, IM pit, manual expression of clot PLAN: s/p PPD # 1 1. routine post delivery care 2. breast feeding- support given 3. rh positive 4. rubella immune 5. d/c home today (2) (spontaneous vaginal delivery): COMMENT: 08/19/2022 IAL, girl-Nithya at 40+2. LC
== END 2022-08-20 11:35 | disposition home or self-care (01) | DRG 807 ==
LOC: WPOUT 23:14 → WP 23:14
PROVIDERS: Admitting Provider Registered Nurse; Visit Provider Registered Nurse
DX: O72.1 Other immediate postpartum hemorrhage (principal); Z37.0 Single live birth; O71.82 Other specified trauma to perineum and vulva; Z28.39 Other underimmunization status; Z3A.39 39 weeks gestation of pregnancy; O99.02 Anemia complicating childbirth
CPT/HCPCS: 59025; 59050; 80307; 85025; 85027; 86703; 86762; 86780; 86803; 86850; 86900; 86901; 87340; 87426; 87491; 87591; 99218; J7120; A4216; G0378

== ENCOUNTER → 2023-07-30 | Outpatient (CLI) | payer SELFPAY, OTHER ==
[2023-07-30 15:24] LABS: Absolute Lymphocyte Count 2.68 X10^3/uL (0.83-4.51); Absolute Neutrophil Count 5.4 X10^3/uL (2.0-7.7); Basophil# 0.05 X10^3/uL; Basophil% 0.6 % (0-1); Eosinophil# 0.03 X10^3/uL; Eosinophils% 0.3 % (0-5); Hematocrit 36.8 % (37-47); Hemoglobin 12.3 g/dL (12.0-15.0); Lymphocyte # 2.68 X10^3/ul (0.83-4.51); Lymphocyte % 30.2 % (19-41); Mean Corp Hgb Conc 33.4 g/dL (32-36); Mean Corpuscular Hgb 29.3 pg (27.0-32.0); Mean Corpuscular Volume 87.6 fL (81-99); Mean Platelet Vol. 8.7 fl (6.2-12.0); Monocyte# 0.66 X10^3/uL; Monocyte% 7.4 % (0-10); NRBC Flagged by Analyzer 0 % (0-5); Neutrophil # 5.44 X10^3/uL (2.7-7.7); Neutrophil % 61.3 % (47-70); Platelet Count 210 K/mm3 (150-450); RBC Distribution Width CV 12.3 % (11.6-14.6); RBC Distribution Width SD 39.6 fl (35.1-43.9); White Blood Count 8.9 K/mm3 (4.4-11.0)
[2023-07-30 16:39] LABS: HIV - WCH Non-Reactive (Nonreactive); Hepatitis B Surface Antigen Non-Reactive (Nonreactive); Hepatitis C Antibody Non-Reactive (Nonreactive); Rubella IgG Reactive (Nonreactive); Syphilis Antibodies Non-reactive
[2023-08-03 21:07] LABS: Chlamydia By Nucleic Acid AMP Negative (Negative); Gonococcus By Nucleic Acid AMP Negative (Negative)
== END | disposition home or self-care (01) ==
PROVIDERS: Referring Provider Advanced Practice Midwife; Visit Provider Advanced Practice Midwife
DX: Z34.00 Encounter for supervision of normal first pregnancy, unspecified trimester (principal)
CPT/HCPCS: 36415; 85025; 86703; 86762; 86780; 86803; 86850; 86900; 86901; 87077; 87086; 87088; 87186; 87340; 87491; 87591

== ENCOUNTER → 2023-10-14 | Outpatient (CLI) | payer SELFPAY, OTHER ==
--- NOTE | 2023-10-14 09:46 | US_ITS ---
ACR Level 3 findings have been noted. An addendum which confirms receipt of the report will follow. EXAM: US SECOND OR THIRD TRIMESTER , TRANSABDOMINAL AND TRANSVAGINAL CLINICAL INDICATION: anatomy scan TECHNIQUE: Transabdominal and endovaginal obstetrical ultrasound of the maternal pelvis and a second or third trimester with image documentation. Endovaginal imaging was used for better evaluation of the fetus and adnexa. COMPARISON: 07/23/2022 FINDINGS: FETUS: Single viable IUP. HEART RATE: heart rate: 150 bpm. PRESENTATION: Variable position, predominantly cephalic. PLACENTA: The placental margin is approximately 0.9 cm from the internal cervical os as identified on endovaginal technique. Posterior placenta. No abruption. AMNIOTIC FLUID: Amniotic fluid volume is subjectively within normal limits. ANATOMY: There are multiple choroid plexus cysts bilaterally, the largest measuring 5 mm. A three-vessel umbilical cord is identified. The abdominal cord insertion appears normal. The cervical, thoracic, lumbar spine appear normal. The sacrum is incompletely visualized. Other intracranial structures appear normal. The face, nose, and lips appear normal. Four-chamber heart is visualized and appears normal. No pyelectasis. Normal urinary bladder. The extremities are visualized. BIOMETRICS GESTATIONAL AGE: Estimated gestational age: 20 weeks, 0 days. JEANA: 03/02/2024. EFW: Estimated weight: 326 g (45%). BPD: 4.56 cm. HC: 17.80 cm. AC: 15.53 cm. FL: 2.96 cm. MATERNAL: UTERUS: No significant abnormality. No myometrial mass. CERVIX: The cervix is closed measuring 4.7 cm in length. Detailed evaluation of the cervix is performed with endovaginal technique. ADNEXA: The maternal adnexal structures are not visualized. FREE FLUID: None. US/OB Anatomy w/ Transvaginal IMPRESSION: 1. Multiple bilateral choroid plexus cysts. These generally disappear by 26-28 weeks in utero and are of no significance in most cases follow-up as clinically indicated if there is suspicion for aneuploidy. 2. Grade 1 placenta previa (low lying placenta). 3. Limited visualization of the sacral spine. No additional anatomic abnormality is identified. Electronically Signed: Tung Mccullough DO at 19:37 EST ,
== END | disposition home or self-care (01) ==
LOC: US 09:45
PROVIDERS: Referring Provider Registered Nurse; Visit Provider Registered Nurse
DX: Z34.90 Encounter for supervision of normal pregnancy, unspecified, unspecified trimester (principal)
CPT/HCPCS: 76805; 76817

== ENCOUNTER → 2023-12-10 | Outpatient (CLI) | payer SELFPAY, OTHER ==
[2023-12-10 09:58] LABS: Absolute Lymphocyte Count 1.98 X10^3/uL (0.83-4.51); Absolute Neutrophil Count 3.9 X10^3/uL (2.0-7.7); Basophil# 0.02 X10^3/uL; Basophil% 0.3 % (0-1); Eosinophil# 0.04 X10^3/uL; Eosinophils% 0.6 % (0-5); Hematocrit 28.7 % (37-47); Hemoglobin 9.5 g/dL (12.0-15.0); Lymphocyte # 1.98 X10^3/ul (0.83-4.51); Lymphocyte % 30.8 % (19-41); Mean Corp Hgb Conc 33.1 g/dL (32-36); Mean Corpuscular Hgb 30.6 pg (27.0-32.0); Mean Corpuscular Volume 92.6 fL (81-99); Mean Platelet Vol. 8.7 fl (6.2-12.0); Monocyte# 0.47 X10^3/uL; Monocyte% 7.3 % (0-10); NRBC Flagged by Analyzer 0 % (0-5); Neutrophil # 3.87 X10^3/uL (2.7-7.7); Neutrophil % 60.4 % (47-70); Platelet Count 176 K/mm3 (150-450); RBC Distribution Width CV 13.2 % (11.6-14.6); White Blood Count 6.4 K/mm3 (4.4-11.0)
--- NOTE | 2023-12-10 09:58 | US_ITS ---
STUDY: SECOND AND THIRD TRIMESTER OBSTETRICAL ULTRASOUND - LIMITED REASON FOR EXAM: Female, 28 years old Follow up low lying placenta and sacral spine views LMP: May 27, 2023. PRIOR ULTRASOUND: Comparison is made with prior study dated October 14, 2023. TECHNIQUE: Transabdominal TECHNICAL QUALITY: Adequate. FINDINGS: There is a single intrauterine fetus. The fetus is in a cephalic presentation. There is demonstrated cardiac activity with a heart rate of 150 bpm. There is a normal amniotic fluid volume. The largest amniotic fluid pocket measures 3.7 cm x 3.2 cm. The amniotic fluid index (NICOLE) is within normal limits. cm. The placenta is posterior in location and is not low lying. The tip of the placenta is at 5 cm from the cervical os. There are Grade 1 placental changes. The cervix measures 3.4 cm in length. Limited visualization of the sacral spine due to head position. US/OB Limited (No Biometrics) IMPRESSION: Posterior placenta. The placental tip is at 5 cm from the cervical os. Electronically Signed: Anibal Matamoros MD at 13:30 EST ,
[2023-12-10 10:36] LABS: Glucose Challenge Gest 1H 50g 81 mg/dL (70-140)
--- OUTSIDE RECORDS SUMMARY | 2023-12-10 11:02 | XMS RPT_ITS | CCD ---
Author Name Unknown Address [facility] [place] [address] Organization [facility] Care Team Providers Care Calciner Operator Name Role Phone ZULEIKA HINOJOSA Admitting Unavailable ASHISHZULEIKA WASHINGTON Attending Unavailable ZULEIKA HINOJOSA Primary Care Unavailable Problems Problem Classification Problem Date Documented Da te Episodic/Chronic Fever of unknown origin (2 sources) Fever, unspecified; Translations: [Fever, unspecified] Onset: 03-11-2020 Episodic Unclassified (1 source) Invalid ICD10 Description; Translations: [Invalid ICD10 Description] Onset: 03-11-2020 Results Test Name Value Interpretation Reference Range Facil ity Encounters Encounter Date Encounter Type Care Provider Facility Start: 03-11-2020 End: 03-11-2020 Patient encounter procedure ZULEIKA HINOJOSA [facility] Payers Date Payer Category Payer Unknown [id number] Unknown [id number] Summary Purpose Family History No Family History Records FoundNo Family History Records FoundNo Family History Records Found Advance Directives No Advanced Directives Records FoundNo Advanced Directives Records FoundNo Advanced Directives Records Found Additional Source Comments INFORMATION SOURCE (unrecogn ized section and content) DATE CREATED AUTHOR AUTHOR'S ORGANIZ ATION 03/14/2020 [facility] DATE CREATED AUTHOR AUTHOR'S ORGANIZ ATION 03/19/2020 [facility] FOR RECORDS PERTAINING TO PATIENTS WHO ARE OR HAVE BEEN ENROLLED IN A CHEMICAL DEPENDENCY/SUBSTANCEABUSE PROGRAM, SOME INFORMATION MAY BE OMITTED. This clinical summary was aggregated from multiple sources. Caution should be exercised in using it in the provision of clinical care. This summary normalizes information from multiple sources, and as a consequence, information in this document may materially change the coding, format and clinical context of patient data. In addition, data may be omitted in some cases. CLINICAL DECISIONS SHOULD BE BASED ON THE PRIMARY CLINICAL RECORDS. [facility]. provides no warranty or guarantee of the accuracy or completeness of information in this document.
[2023-12-10 11:04] LABS: HIV - WCH Non-Reactive (Nonreactive); Syphilis Antibodies Non-reactive
== END | disposition home or self-care (01) ==
LOC: US 09:58
PROVIDERS: Referring Provider Nurse Practitioner Women's Health; Visit Provider Nurse Practitioner Women's Health
DX: Z34.02 Encounter for supervision of normal first pregnancy, second trimester (principal)
CPT/HCPCS: 36415; 76815; 82950; 85025; 86703; 86780

== ENCOUNTER → 2024-01-08 | Outpatient (CLI) | payer OTHER, SELFPAY ==
[2024-01-08 10:00] LABS: Absolute Lymphocyte Count 2.25 X10^3/uL (0.83-4.51); Absolute Neutrophil Count 5.8 X10^3/uL (2.0-7.7); Basophil# 0.03 X10^3/uL; Basophil% 0.3 % (0-1); Eosinophil# 0.07 X10^3/uL; Eosinophils% 0.8 % (0-5); Hematocrit 31.6 % (37-47); Hemoglobin 10.2 g/dL (12.0-15.0); Lymphocyte # 2.25 X10^3/ul (0.83-4.51); Lymphocyte % 25.7 % (19-41); Mean Corp Hgb Conc 32.3 g/dL (32-36); Mean Corpuscular Hgb 30.4 pg (27.0-32.0); Mean Corpuscular Volume 94.3 fL (81-99); Mean Platelet Vol. 9.3 fl (6.2-12.0); Monocyte# 0.56 X10^3/uL; Monocyte% 6.4 % (0-10); NRBC Flagged by Analyzer 0 % (0-5); Neutrophil # 5.77 X10^3/uL (2.7-7.7); Neutrophil % 66.1 % (47-70); Platelet Count 170 K/mm3 (150-450); RBC Distribution Width CV 13.9 % (11.6-14.6); RBC Distribution Width SD 47.2 fl (35.1-43.9); Red Blood Count 3.35 M/mm3 (4.2-5.4); White Blood Count 8.7 K/mm3 (4.4-11.0)
[2024-01-08 10:20] LABS: Ferritin 16 ng/mL (8-252); Iron 162 ug/dL (50-170); Iron Binding Capacity,Total 498 ug/dL (250-450); PERCENT IRON SATURATION 32.5 % (15.0-55.0)
--- NOTE | 2024-01-08 10:33 | US_ITS ---
STUDY: SECOND AND THIRD TRIMESTER OBSTETRICAL ULTRASOUND - LIMITED REASON FOR EXAM: Female, 28 years old , evaluate growth LMP: 05/27/2023 PRIOR ULTRASOUND: Prior study dated: 12/10/2023 TECHNIQUE: Transabdominal TECHNICAL QUALITY: Adequate. FINDINGS: There is a single intrauterine fetus. The fetus is in a cephalic presentation. There is demonstrated cardiac activity with a heart rate of 148 bpm. There is a normal amniotic fluid volume. The largest amniotic fluid pocket measures 4.2 cm. The amniotic fluid index (NICOLE) is 9.2 cm. The placenta is posterior in location and is not low lying. There are Grade 1 placental changes. The cervix is not visualized. BIOMETRY: BPD: 8 cm: 32 weeks, 2 days HC: 29.2 cm: 32 weeks, 2 days AC: 28.7 cm: 32 weeks, 5 days FL: 28.7 cm: 30 weeks, 4 days Age by LMP: 32 weeks, 2 days. JEANA by LMP: 03/02/2024. age by current US: 32 weeks, 0 days. JEANA by current US: 03/04/2024. Estimated weight: 1900 grams, +/- 285 grams, 34 percentile. US/OB Limited With Biometrics IMPRESSION: Single live intrauterine fetus in cephalic presentation with an estimated gestational age of 32 weeks. The JEANA is 03/04/2024. Electronically Signed: Sd Patel MD at 13:19 EDT ,
== END | disposition home or self-care (01) ==
LOC: US 10:33
PROVIDERS: Nurse Practitioner Women's Health; Referring Provider Registered Nurse; Visit Provider Registered Nurse
DX: O26.843 Uterine size-date discrepancy, third trimester (principal); O99.013 Anemia complicating pregnancy, third trimester; Z3A.00 Weeks of gestation of pregnancy not specified
CPT/HCPCS: 36415; 76816; 82728; 83540; 83550; 85025

== ENCOUNTER → 2024-02-10 | Outpatient (CLI) | payer OTHER, SELFPAY ==
[2024-02-10 10:11] LABS: Absolute Lymphocyte Count 1.89 X10^3/uL (0.83-4.51); Absolute Neutrophil Count 5.5 X10^3/uL (2.0-7.7); Basophil# 0.02 X10^3/uL; Basophil% 0.2 % (0-1); Eosinophil# 0.08 X10^3/uL; Hematocrit 32.1 % (37-47); Hemoglobin 10.7 g/dL (12.0-15.0); Lymphocyte # 1.89 X10^3/ul (0.83-4.51); Lymphocyte % 23.4 % (19-41); Mean Corp Hgb Conc 33.3 g/dL (32-36); Mean Platelet Vol. 9.2 fl (6.2-12.0); Monocyte# 0.52 X10^3/uL; Monocyte% 6.4 % (0-10); NRBC Flagged by Analyzer 0 % (0-5); Neutrophil # 5.53 X10^3/uL (2.7-7.7); Neutrophil % 68.4 % (47-70); Platelet Count 170 K/mm3 (150-450); RBC Distribution Width CV 13.7 % (11.6-14.6); RBC Distribution Width SD 46.3 fl (35.1-43.9); Red Blood Count 3.45 M/mm3 (4.2-5.4); White Blood Count 8.1 K/mm3 (4.4-11.0)
== END | disposition home or self-care (01) ==
LOC: PAVLAB 09:51
PROVIDERS: Referring Provider Registered Nurse; Visit Provider Registered Nurse
DX: D64.9 Anemia, unspecified (principal)
CPT/HCPCS: 36415; 85025

== ENCOUNTER 2024-02-28 08:21 | Inpatient (IN) | payer SELFPAY, OTHER ==
[2024-02-28] VITALS (29 sets, daily range): BP systolic 97–118; BP diastolic 50–73; PULSE 60–98; RESP 16; TEMP 36.6–37.1; O2SAT 81–100; BMI 25.4
[2024-02-28] MEDS: Penicillin G Pot 5,000,000 UNITS in 0.9% Normal Saline (100mL MB+) 100 ML 150 UNITS IV (04:24)
[2024-02-28] MEDS: Lactated Ringers 1,000 ML 50 ML IV (04:24)
[2024-02-28 04:37] LABS: Absolute Neutrophil Count 7.4 X10^3/uL (2.0-7.7); Basophil# 0.03 X10^3/uL; Basophil% 0.3 % (0-1); Eosinophil# 0.05 X10^3/uL; Eosinophils% 0.5 % (0-5); Hematocrit 33.1 % (37-47); Hemoglobin 11.2 g/dL (12.0-15.0); Mean Corp Hgb Conc 33.8 g/dL (32-36); Mean Corpuscular Hgb 31.3 pg (27.0-32.0); Mean Corpuscular Volume 92.5 fL (81-99); Mean Platelet Vol. 9.4 fl (6.2-12.0); Monocyte# 0.71 X10^3/uL; Monocyte% 6.5 % (0-10); NRBC Flagged by Analyzer 0 % (0-5); Neutrophil # 7.38 X10^3/uL (2.7-7.7); Neutrophil % 68.1 % (47-70); Platelet Count 192 K/mm3 (150-450); RBC Distribution Width CV 13.2 % (11.6-14.6); RBC Distribution Width SD 44.9 fl (35.1-43.9); Red Blood Count 3.58 M/mm3 (4.2-5.4); White Blood Count 10.8 K/mm3 (4.4-11.0)
--- NOTE | 2024-02-28 04:37 | HP.PCM.OB_ITS ---
HPI - General General Date of Admission: 02/28/24 Date of Service: 02/28/24 HPI Narrative TANIA JONES, is a 28 F 2/1 39.4 weeks gestation who presents to unit in active labor. GBS positive. Maternal Data Information JEANA Calculator Estimated Delivery Date Method Current WG Current Estimate 03/02/24 LMP (Certain) 39w 4d Final JEANA: 03/02/24 Final JEANA Source: US >20 weeks Gestational age: 39.4 [facility] Medical History (Updated 02/28/24 @ 04:39 by Sudha Finnegan CNM) Anemia hemorrhage hemorrhage Supervision of normal first (spontaneous vaginal delivery) Uterine size-date discrepancy, third trimester Home Medications prenat.vits,ric,fjo-gomd-jharq 1 tab PO DAILY 01/21/22 [History Last Taken 08/06/22 11:00] calcium citrate 315 mg calcium-vitamin D3 6.25 mcg (250 unit) tablet (Citracal + Vitamin D Maximum) 1 tab PO DAILY supplement 01/27/22 [History Last Taken Unknown] folic acid 400 mcg tablet 0.4 mg PO DAILY 01/27/22 [History Last Taken Unknown] lactobacillus combination no.9 4 billion cell capsule (Adult 50 Plus Probiotic) 1 cell PO DAILY gut health 01/27/22 [History Last Taken Unknown] Allergy/AdvReac Type Severity Reaction Status Date / Time No Known Allergies Allergy Verified 02/16/24 09:51 Social History adopted: No household members: spouse housing: house number of children: 1 current occupational status: unemployed pets and animals: Yes pets and animals: dog(s) history of recent travel: No sexually active: Yes Smoking Status: Never smoker alcohol intake: never substance use type: does not use caffeine: No seatbelt use: always do you feel safe at home: Yes additional social history: [employer] Patient does not work History 2 Elective abortions Hx Para 1 Spontaneous abortions Hx # Term Pregnancies 1 Ectopic pregnancies Hx # Pregnancies Multiple births # of living children 1 Past Pregnancies Del. Date Name GA/Weeks Outcome Route Bth Weight Gen Labor Lgth Anesthesia Del Locatn Provider FOB 08/20/22 Nithya 40 live - full term 6LB 14OZ Female [facility] Gideon Delivery Date: 08/20/22 Last Updated by: Ethel Quintana stage 1 pp hemorrhage Visit Details Expected Delivery Route/Plan Labor Preferences- CB/BF classes: no labor support person: Anthony labor intervention preferences: [] pain management options preferred: limited, open to epidural if requested cut cord/dad catch: cord : yes PP control planned: discussed discussed possible routes of delivery and associated risks: [] special requests: [] Plans Covid status: [] Flu vaccine: declines Tdap vaccine: declines Rhogam: NA LARC form signed: yes Problem list reviewed and updated with the most current plan of care details and appropriate orders placed. Relevant counseling for the gestational age provided. Continue routine care and follow up unless otherwise noted in visit notes/problem list details OB Flowsheet Initial Weight: 123 lb Date -?-?-?-?-?-?-?-?-?-?-?-?- EGA Weight BP Urine Prot -?-?-?-?-?-?-?-?-?-?-?-?- Glucose FHR FuHt Pres Dilation -?-?-?-?-?-?-?-?-?-?-?-?- Effaced St Visit Note 07/30/23 -?-?-?-?-?-?-?-?-?-?-?-?- 9w 1d 123 lb 6 oz (+6 oz) 104/67 -?-?-?-?-?-?-?-?-?-?-?-?- 181 -?-?-?-?-?-?-?-?-?-?-?-?- KW-CRL 22cm. con s with LMP. 08/27/23 -?-?-?-?-?-?-?-?-?-?-?-?- 13w 1d 123 lb (+0 oz) 98/60 -?-?-?-?-?-?-?-?-?-?-?-?- 165 -?-?-?-?-?-?-?-?-?-?-?-?- LC-no vb/leni irwin normal labs. declines afp. [facility] us ordered 09/24/23 -?-?-?-?-?-?-?-?-?-?-?-?- 17w 1d 127 lb (+4 lb) 111/72 Negative -?-?-?-?-?-?-?-?-?-?-?-?- Negative 140 -?-?-?-?-?-?-?-?-?-?-?-?- LC- no vb/crampi ng. no concerns. 10/14/23 -?-?-?-?-?-?-?-?-?-?-?-?- 20w 0d 129 lb 4 oz (+6 lb 4 oz) 98/58 Negative -?-?-?-?-?--?-?-?-?-?-?-?- Negative 150 -?-?-?-?-?-?-?-?-?-?-?-?- JV- no lof, vagi nal bleeding, or cramping. anatomy scan done today and formal results are pending. 11/23/23 -?-?-?-?-?-?-?-?-?-?-?-?- 25w 5d 137 lb (+14 lb) 94/60 Negative -?-?-?-?-?-?-?-?-?-?-?-?- Negative 164 -?-?--?-?-?-?-?-?-?-?-?-?- MH-No VB, LOF. G ood FM. US and next appt with 28 wk labs scheduled 12/10/23 -?-?-?-?-?-?-?-?-?-?-?-?- 28w 1d 139 lb (+16 lb) 98/62 Negative -?-?-?-?-?-?-?-?-?-?-?-?- Negative 155 27 -?-?-?-?-?-?-?-?-?-?-?-?- MH-No VB, LOF. G ood FM. Lar, 28 wk labs. Has US today. Declines tdap 12/24/23 -?-?-?-?-?-?-?-?-?-?-?-?- 30w 1d 139 lb (+16 lb) 93/61 Negative -?-?-?-?-?-?-?-?-?-?-?-?- Negative 150 27 -?-?-?-?-?-?-?-?-?-?-?-?- LC- no vb/ctx/lo f. good fm. growth scan ordered for no growth since last visit. 01/08/24 -?-?-?-?-?-?-?-?-?-?-?-?- 32w 2d 142 lb 8 oz (+19 lb 8 oz) 114/64 Negative -?-?-?-?-?-?-?-?-?-?-?-?- Negative 139 30 -?-?-?-?-?-?-?-?-?-?-?-?- LC- no vb/ctx/lo f. good fm. has growth scheduled today. LC- no vb/ctx/lof. good fm. has growth scheduled today. cbc improving. asymptomatic anemia. 01/26/24 -?-?-?-?-?-?-?-?-?-?-?-?- 34w 6d 145 lb 6 oz (+22 lb 6 oz) 98/63 Negative -?-?-?-?-?-?-?-?-?-?-?-?- Negative 160 34 -?-?-?-?-?-?-?-?-?-?-?-?- SM- no vb lof go od fm no regular ctx 02/10/24 -?-?-?-?-?-?-?-?-?-?-?-?- 37w 0d 146 lb (+23 lb) 99/66 Negative -?-?-?-?-?-?-?-?-?-?-?-?- Negative 158 35 Cephalic -?-?-?-?-?-?-?-?-?-?-?-?- JV- NICOLE today is 15. no lof, vaginal bleeding, or dec fm. growth scan 4 weeks ago was 34th%. declines exam. is gbs pos 02/16/24 -?-?-?-?-?-?-?-?-?-?-?-?- 37w 6d 145 lb 8 oz (+22 lb 8 oz) 100/76 Negative -?-?-?-?-?-?-?-?-?-?-?-?- Negative 148 36 Cephalic 1 -?-?-?-?-?-?-?-?-?-?-?-?- 30 -3 MH-No VB, LOF. Good FM. No reg CTX 02/25/24 -?-?-?-?-?-?-?-?-?-?-?-?- 39w 1d 145 lb 4 oz (+22 lb 4 oz) 93/62 -?-?-?-?-?-?-?-?-?-?-?-?- 135 37 Cephalic 2.5 -?-?-?-?-?-?-?-?-?-?-?-?- 70 -2 kw- no vb/ lof/ctx. good fm. kw- no vb/lof/ctx. good fm. labor precautions. NST FHR Rate Baby A Baseline: 140 Variability:: Moderate Accelerations:: 15 x 15 Decelerations:: None NST Reactive:: Yes FHR Category:: Category I Uterine Activity:: 3-4 ROS Constitutional Constitutional: Denies change in weight, fatigue, fever(s), headache(s), poor appetite or weakness Eyes Eyes: Denies blurry vision, change in vision, floaters, seeing flashes or spots in vision ENT HEENT: Denies dizziness, headache(s), loss taste/smell or sore throat Cardiovascular Cardiovascular: Denies chest pain, dizziness, dyspnea, irregular heart rhythm, lightheadedness, palpitations or rapid heart rate Respiratory/Chest Respiratory/Chest: Denies change in mental status, chest tightness, cough, dyspnea or breast pain Gastrointestinal Gastrointestinal: Denies anorexia, chewing difficulty, constipation, diarrhea or weight changes Genitourinary Genitourinary: Denies difficulty urinating, dysuria, flank pain, genital pain, urinary frequency or urinary urgency Musculoskeletal Musculoskeletal: Denies back pain, difficulty walking, extremity pain, joint pain, muscle cramps or muscle weakness Integumentary Integumentary: Denies lesions or unusual bruising Neurologic Neurologic: Denies abnormal movements, abnormal speech, dizziness, numbness, seizure-like activity, syncope or weakness Psychiatric Psychiatric: Denies behavioral changes, change in appetite, confusion, dep ression, homicidal ideation, suicidal ideation or suicidal thoughts Endocrine Endocrinology: Denies excessive sweating, polydipsia or polyuria Hematologic/Lymphatic Hematologic/Lymphatic: Denies anemia Allergic/Immunologic Allergic/Immunologic: Denies itchy eyes, lip swelling, throat swelling, tongue swelling or wheezing Vital Signs Vital Signs Vital Signs: 02/28/24 03:42 02/28/24 03:43 02/28/24 03:43 Pulse Rate 89 Blood Pressure BP Systolic BP Diastolic Pulse Ox 81 100 02/28/24 03:45 02/28/24 03:45 Pulse Rate 81 Blood Pressure 111/71 BP Systolic 111 BP Diastolic 71 Pulse Ox Physical Exam Const alert, oriented x3 and no apparent distress General Appearance: cooperative Orientation / Consciousness: awake HEENT normocephalic Neck full ROM Lymph Lymphatic: no lymphadenopathy noted Chest inspection of chest normal Resp normal respiratory effort and normal air movement Effort and Inspection: able to speak in complete sentences and symmetric chest movement GI soft to palpation and non-tender Inspection: gravid Palpation: soft; Negative for tender external exam normal Back/Spine normal to inspection Extremity normal to inspection and full ROM Skin no rashes or lesions noted Psych mental status grossly normal Appearance: grossly normal Speech: normal speech Labs Labs Labs: Blood Type A POSITIVE Antibody Screen NEGATIVE Hct 33.1 % (37-47) L Hgb 11.2 g/dL (12.0-15.0) L Obstetrics Ultrasound Syphilis Total Ab Non-reactive VZV IgG Antibody < 135 index (Immune >165) L Rubella IgG Antibody Reactive (Nonreactive) Hep Bs Antigen Non-Reactive (Nonreactive) Hepatitis C Antibody Non-Reactive (Nonreactive) Chlamydia DNA (MARI) Negative (Negative) N.gonorrhoeae DNA (MARI) Negative (Negative) HIV 1&2 Antibody Non-Reactive (Nonreactive) Glucose 1 Hr 50 gm 81 mg/dL (70-140) Assessment & Plan (1) Active labor at term: PLAN: Patient presents IAL, plan expectant management for , pitocin/AROM PRN if needed. Pain management: plans no epidural. GBS positive plan IV PCN. Management of any complications: none I have reviewed the [facility] and made any clinically relevant updates. (2) Choroid plexus cyst of fetus: COMMENT: Multiple and bilateral:offer NIPT/declined Nl anatomy (3) Supervision of normal : QUALIFIERS: Normal : other normal Trimester: third trimester Qualified Code(s): Z34.83 - Encounter for supervision of other normal , third trimester COMMENT: [id number] EDD03/02/24 ELIZA Nithya, Spouse: Curtis (4) GBS (group B streptococcus) UTI complicating : QUALIFIERS: Trimester: second trimester Qualified Code(s): O23.42 - Unspecified infection of urinary tract in , second trimester; B95.1 - Streptococcus, group B, as the cause of diseases classified elsewhere COMMENT: not high enough to indicate UTI- Treat in labor (5) History of hemorrhage, currently : (6) Short interval between pregnancies affecting , antepartum: (7) Uterine size-date discrepancy, third trimester: COMMENT: growth US ordered/adequate, kick counts reviewed (8) Anemia: QUALIFIERS: Anemia type: iron deficiency Iron deficiency anemia type: unspecified iron deficiency Qualified Code(s): D50.9 - Iron deficiency anemia, unspecified COMMENT: Stable. added supplement (9) : QUALIFIERS: Weeks of gestation: 39 weeks Qualified Code(s): Z3A.39 - 39 weeks gestation of COMMENT: declined ntd genetic and carrier screen. Charges/Coding Multi Select Codes Urinary/Genital Urinary/Genital CPT Codes: No Charge
[2024-02-28] MEDS: Oxytocin 15 Units/NS 250ml 15 UNITS/250 ML IV.SOLN 334 UNITS IV (07:56)
[2024-02-28] MEDS: Oxytocin 10 UNITS/ML Vial IM (08:03)
--- NOTE | 2024-02-28 08:12 | EX.PCM.OBRPT ---
Assessment & Plan (1) Vaginal delivery: COMMENT: KW 39.4 IAL girl (2) Choroid plexus cyst of fetus: COMMENT: Multiple and bilateral:offer NIPT/declined Nl anatomy (3) Supervision of normal : QUALIFIERS: Normal : other normal Trimester: third trimester Qualified Code(s): Z34.83 - Encounter for supervision of other normal , third trimester COMMENT: [id number] EDD03/02/24 Nithya, Spouse: Curtis (4) GBS (group B streptococcus) UTI complicating : QUALIFIERS: Trimester: second trimester Qualified Code(s): O23.42 - Unspecified infection of urinary tract in , second trimester; B95.1 - Streptococcus, group B, as the cause of diseases classified elsewhere COMMENT: not high enough to indicate UTI- Treat in labor (5) History of hemorrhage, currently : (6) Short interval between pregnancies affecting , antepartum: (7) Uterine size-date discrepancy, third trimester: COMMENT: growth US ordered/adequate, kick counts reviewed (8) Anemia: QUALIFIERS: Anemia type: iron deficiency Iron deficiency anemia type: unspecified iron deficiency Qualified Code(s): D50.9 - Iron deficiency anemia, unspecified COMMENT: Stable. added supplement (9) : QUALIFIERS: Weeks of gestation: 39 weeks Qualified Code(s): Z3A.39 - 39 weeks gestation of COMMENT: declined ntd genetic and carrier screen. Maternal Data Information JEANA Calculator Estimated Delivery Date Method Current WG Current Estimate 03/02/24 LMP (Certain) 39w 4d Final JEANA: 03/02/24 Final JEANA Source: US >20 weeks Gestational age: 39.4 weeks Vaginal Delivery Maternal Presentation Maternal Presentation: Active Labor Maternal Presentation: Progressed well to 10cm dilated and made steady progress with effective maternal pushing. Delivered the head in SAM presentation. The head was delivered atraumatically and no nuchal cord was identified. The anterior and posterior shoulders delivered without complication followed by the rest of the infant and the infant was placed on the maternal abdomen. Delayed cord clamping was employed for approximately 3 minutes. Cord was clamped and cut and gentle traction was applied to the cord and the placenta delivered spontaneously. Immediately following, it was noted to be intact with a 3 vessel cord. The perineum and vagina were inspected and noted to have no laceration. EBL was 200cc. Patient and tolerated delivery well. Apgars 8/9. bleeding stable Dr Benites notified of vaginal delivery and orders reviewed. Physician agrees with current plan of care. 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: Sudha Finnegan Type of Anesthesia: None Estimated Blood Loss: 200 Time of Delivery: 07:54 Findings Presentation: Vertex Amniotic Membrane Rupture Type: Artificial Time of Membrane Rupture: 629 Amniotic Fluid Description: Clear Placental Delivery Description: Spontaneous Placenta Disposition: [facility] Cord Vessel Description: 3 Vessels Cord Entanglement: None A Gender: Female (1 minute): 8 (5 minute): 9 Delayed Cord Clamping: Yes Post Vaginal Delivery Medications Given After Delivery: IV Pitocin and IM Pitocin Episiotomy Description: None Laceration: None Complication Complications: None Multi Select Codes Urinary/Genital Urinary/Genital CPT Codes: 43330 Vaginal Delivery [facility]
--- NOTE | 2024-02-28 08:20 | DCINST_ITS ---
Discharge Instructions Diet Discharge Diet: No restrictions Activity Discharge Activity: Return to Normal Activity May resume sexual activity in: 6-8 weeks Dressing / Incision Call your doctor if you observe: Fever of 101 or Higher, Coldness, Increased Pain, Numbness or Tingling, Change in Color, Inability to urinate, Inability to have a bowel movement, Using more than 1 pad per hour, Shortness of breath, Dizziness, Fainting spells, Swelling in the ankles, Chest pain, Increased palpitations (irregular heartbeat), Calf discomfort and Uncontrolled pain Follow Up Care Please Follow Up With: Sudha Finnegan CNM When: Please call the office to schedule your follow up appointment in 6 weeks. If you had high blood pressure please call to schedule an appointment in 2 weeks. Test Results: Test results from this visit will be discussed in further detail at your follow- up appointment, if applicable. Discharge Plan Admission Admit Date/Time: 02/28/24 03:56 Attending Provider: Sudha Finnegan Primary Care Provider: Care Physician,No Primary Discharge Orders/Prescriptions Prescriptions: No Action prenat.vits,ric,nky-dear-jawqk Tablet 1 tab PO DAILY Adult 50 Plus Probiotic 4 billion cell capsule 1 cell PO DAILY folic acid 400 mcg tablet 0.4 mg PO DAILY Hold Instructions: Order Completed cholecalciferol (vitamin D3) 125 mcg (5,000 unit) tablet,disintegrating 5,000 mcg PO DAILY Referrals / Follow Up: Care Physician,No Primary [Primary Care Provider] -
[2024-02-29] VITALS (9 sets, daily range): BP systolic 88–108; BP diastolic 49–66; PULSE 66–77; RESP 16; TEMP 36.3–36.9; O2SAT 95–98
--- NOTE | 2024-02-29 05:43 | PCM.PN.OB ---
Subjective Subjective Patient doing well without complaints. Tolerating PO. Ambulating and voiding without difficulty. feeding well. Denies chest pain, shortness of breath, calf pain/swelling, fevers, chills, lightheadedness. Objective Data Objective Data Vital Signs: Vital Signs Temp Pulse Resp BP Pulse Ox O2 Del Method 97.4 F L 74 16 105/52 L 98 Room Air 02/29/24 04:07 02/29/24 04:08 02/29/24 04:07 02/29/24 04:08 02/29/24 04:07 02/29/24 04:07 Oxygen Delivery Method Room Air Weight: 143 lb 9.6 oz Body Mass Index (BMI) 25.4 Intake & Output: Intake and Output for Last 24 Hours 02/27/24 02/28/24 02/29/24 23:59 23:59 23:59 Intake Total 1435.00 / 1435.00 Output Total 1550 / 1550 Balance -115.00 / -115.00 Lab / Micro Data 02/28/24 04:15 Labs: Laboratory Results - last 24 hr 02/28/24 04:15: Blood Type A POSITIVE, Antibody Screen NEGATIVE ROS Constitutional Constitutional: Reports systems reviewed and no addt'l complaints, except as documented Cardiovascular Cardiovascular: Reports systems reviewed and no addt'l complaints, except as documented Respiratory/Chest Respiratory/Chest: Reports systems reviewed and no addt'l complaints, except as documented Gastrointestinal Gastrointestinal: Reports systems reviewed and no addt'l complaints, except as documented Physical Exam Const alert, oriented x3 and no apparent distress HEENT Head and Scalp: atraumatic Resp normal respiratory effort GI soft to palpation and non-tender Bimanual Exam - Vag & Uterus: uterus non-tender Uterus Palpation: uterus fundus firm (below Umbilicus) Assessment & Plan (1) Vaginal delivery: COMMENT: KW 39.4 IAL girl PLAN: Plan s/p PPD # 1 1. routine post delivery care 2. breast feeding- support given 3. rh positive 4. rubella immune
[2024-02-29 17:14] LABS: Syphilis Antibodies Non-reactive
== END 2024-02-29 18:54 | disposition home or self-care (01) | DRG 807 ==
LOC: WP 08:37
PROVIDERS: Admitting Provider Advanced Practice Midwife; Referring Provider Advanced Practice Midwife; Visit Provider Advanced Practice Midwife
DX: O99.824 Streptococcus B carrier state complicating childbirth (principal); Z37.0 Single live birth; D50.9 Iron deficiency anemia, unspecified; O99.02 Anemia complicating childbirth; Z3A.39 39 weeks gestation of pregnancy
CPT/HCPCS: 59025; 59050; 85025; 86780; 86850; 86900; 86901; J7120

== ENCOUNTER → 2025-04-20 | Outpatient (CLI) | payer OTHER, SELFPAY | END | disposition home or self-care (01) | LOC: LABSPEC 11:16 | PROVIDERS: Visit Provider Advanced Practice Midwife | DX: Z12.4 Encounter for screening for malignant neoplasm of cervix (principal) | CPT/HCPCS: 88175; G0145 ==